=== PATIENT | female | born 1965 | race Caucasian/White ===

== ENCOUNTER → 2017-06-01 | Outpatient (CLI) | payer BC ==
[2017-06-01 13:35] LABS: HCT 43.6 % (34.0-46.0); HGB 13.8 gm/dL (11.4-16.0); MCH 28.2 pg (25.0-35.0); MCHC 31.7 g/dL (31.0-37.0); MCV 89.1 fL (80.0-100.0); Platelet Count 270 k/uL (150-450); RDW 12.5 % (11.5-15.5); WBC 7.1 k/uL (3.8-10.6)
== END | disposition home or self-care (01) ==
LOC: LABPAT 13:02
PROVIDERS: ATTEND Urology
DX: N39.46 Mixed incontinence (principal); R53.83 Other fatigue
CPT/HCPCS: 36415; 85027; 87086; 93005

== ENCOUNTER 2017-06-08 05:57 | Day surgery (SDC) | payer BC ==
[2017-06-05 15:59] VITALS: BMI 29.2
[~2017-06-08 05:57] MED LIST: LACTATED RINGERS 1,000 ML IV SCH; LEVOFLOXACIN 500MG-D5W PMX 500 MG in DEXTROSE/WATER 1 100ML.BAG IVPB ONE; MORPHINE SULFATE 2 MG/ML SYRINGE IV PRN
[2017-06-08] MEDS ORDERED: LIDOCAINE 1% 20 ML VIAL (10MG/ML) FOR IV START INTRADERMA ONE (06:37)
[2017-06-08] MEDS ORDERED: DEXAMETHASONE SOD PHOSPHATE 10 MG/ML 1 ML VIAL IV ONE (07:02)
[2017-06-08] MEDS ORDERED: SCOPOLAMINE 1.5MG/72HR PATCH TRANSDERM ONE (07:03)
[2017-06-08] MEDS ORDERED: ONDANSETRON 4 MG/2 ML VIAL IVP ONE (07:03)
[2017-06-08] MEDS ORDERED: BUPIVACAINE (PF) 0.5% 30 ML VIAL SQ ONE ×2 (07:32)
[2017-06-08] MEDS ORDERED: SUCCINYLCHOLINE CHLORIDE 100 MG/5 ML SYR IV ONE (07:34)
[2017-06-08] MEDS ORDERED: LIDOCAINE 1% INJ 10MG/ML (20 ML MDV) ONE (07:34)
[2017-06-08] MEDS ORDERED: PROPOFOL 10 MG/ML 20 ML VIAL IV ONE (07:34)
[2017-06-08] MEDS ORDERED: ROCURONIUM BROMIDE 10 MG/ML 10 ML VIAL IV ONE (07:34)
[2017-06-08] MEDS ORDERED: GLYCOPYRROLATE 0.2 MG/ML 2 ML VIAL ONE (07:34)
[2017-06-08] MEDS ORDERED: MIDAZOLAM 2 MG/2 ML VIAL ONE (07:34)
[2017-06-08] MEDS ORDERED: NEOSTIGMINE 1 MG/ML 10 ML VIAL ONE (07:34)
[2017-06-08] MEDS ORDERED: ePHEDrine SULFATE/0.9% NACL/PF 50 MG/5 ML SYRINGE IV ONE (07:34)
[2017-06-08] MEDS ORDERED: fentaNYL (PF) 50 MCG/ML 2 ML AMP ONE (07:34)
[2017-06-08] MEDS ORDERED: BACITRACIN 500 UNIT/GM OINT 28.4 GM TUBE TOPICAL ONE (07:51)
[2017-06-08] MEDS ORDERED: LIDOCAINE 1%-EPI 1:100,000 30 ML VIAL SQ ONE (07:53)
[2017-06-08] MEDS ORDERED: LACTATED RINGERS 1,000 ML IV ONE (08:24)
[2017-06-08] MEDS ORDERED: ONDANSETRON 4 MG/2 ML VIAL IVP PRN (08:33)
[2017-06-08] MEDS ORDERED: HYDROcodone/APAP 5-325MG 1 EACH TAB PO PRN ×2 (08:35)
--- NOTE | 2017-06-08 08:44 | P.OP ---
Date of Procedure: 06/08/17 Preoperative Diagnosis: Mixed Urinary Incontinence Postoperative Diagnosis: Same Procedure(s) Performed: Obtryx Subfascial Sling Anesthesia: TORSTEN Surgeon: Mukund Sanchez Estimated Blood Loss (ml): 30 IV fluids (ml): 650 Pathology: none sent Condition: stable Disposition: PACU Indications for Procedure: The patient is a 51 year old female wwith a long history of mixed urinary incontinence. This has not been treated to date, and requires the use of several pads daily. The stress component is predominant. On examination, the bladder is well supported, and there is minimal urethral hypermobility. Bladder emptying is complete, and urinalysis is negative. Urodynamic testing is consistent with Type II SANAM, and a Khadar test is positive. Alternative treatment options were reviewed, and she has elected to undergo a TOT sling. Operative Findings: No complications. Description of Procedure: The patient was taken to the operating room and placed in the dorsal lithotomy position, with her legs supported in Ángel stirrups. The perineum, lower abdomen, and vagina were prepped and draped sterilely. A 16-Israeli Saldaña catheter was placed. Silk sutures were placed to retract the labia laterally on each side. 1% lidocaine with epinephrine was injected submucosally within the anterior vaginal wall, over the urethra. The scalpel was then used to make an anterior midline vaginal incision over the urethra. Metzenbaum scissors were used to dissect laterally within the submucosal plane, to the inferior pubic ramus. The scalpel was used to make bilateral groin incisions at the level of the clitoris. Subcutaneous tissues were spread with a hemostat. Each of the helical needles were passed through the respective groin incision, and turned such that the needle tip wrapped around the pubis. The needle tips were guided digitally into the vaginal incision. The Obtryx graft, which had been previously soaked in antibiotic solution, was secured to the needle tips in the standard fashion. The needles were then withdrawn, and the position of the graft was adjusted such that it overlie the mid urethra, as desired. With a hemostat placed between the graft and the urethra to prevent tension of the graft over the urethra, the plastic sheath was removed from the ends of the graft. The ends of the graft were cut beneath the skin incisions, and these incisions were closed using 4-0 Vicryl suture in a subcuticular fashion. Hemostasis within the vaginal incision was adequate, and the vaginal incision was closed using 2-0 Vicryl suture in a running fashion. ystoscopy was performed. The 30 lens was used to introduce the 17-Israeli Storz cystoscopic sheath through the urethra and into the bladder under direct vision. The urethra and bladder were unremarkable. There was no evidence of perforation. Both ureteral orifices were of normal anatomic location and configuration, and clear urine effluxed from both. No tumors or foreign bodies were seen. The cystoscope was removed, and the Saldaña catheter was replaced into the bladder. All sponge and needle counts were correct. The patient tolerated the procedure well was taken to the recovery room in stable condition.
[2017-06-08] MEDS ORDERED: DEXTROSE 5%-0.45% NACL 1,000 ML IV SCH (08:45)
[2017-06-08] MEDS ORDERED: FLUTICASONE 50MCG/SPRAY NASAL 16GM EA NOSTRIL PRN (08:56)
[2017-06-08] MEDS ORDERED: HYDROCHLOROTHIAZIDE 25 MG TAB PO SCH (09:00)
[2017-06-08] MEDS: LEVOTHYROXINE 25 MCG TAB PO SCH (10:07)
[2017-06-08] MEDS: KETOROLAC 30 MG/ML 1 ML VIAL IVP PRN ×2 (10:23→16:22)
[2017-06-08] MEDS: PANTOPRAZOLE 40 MG TABLET PO SCH (10:23)
[2017-06-09] MEDS: LEVOTHYROXINE 25 MCG TAB PO SCH (06:15)
[2017-06-09] MEDS ORDERED: LEVOFLOXACIN 500MG-D5W PMX 500 MG in DEXTROSE/WATER 1 100ML.BAG IVPB SCH (07:00)
[2017-06-09] MEDS: PANTOPRAZOLE 40 MG TABLET PO SCH (07:50)
[2017-06-09 07:58] VITALS: RESP 16
[2017-06-09] MEDS: KETOROLAC 30 MG/ML 1 ML VIAL IVP PRN (09:22)
[2017-06-09 11:46] VITALS: BP 92/59; PULSE 60; TEMP 98.3
--- NOTE | 2017-06-09 12:51 | P.DS ---
Providers Expected date of discharge: 06/09/17 Attending physician: Mukund Sanchez Primary care physician: Mukund Sanchez [facility] Course: On the day of admission, the patient underwent an uncomplicated Obtryx subfascial sling. The postoperative course was unremarkable. The Saldaña catheter was removed on the first postoperative morning. She subsequently voided twice, the postvoid residuals of 110 and 160 mL. She stated that she had to concentrate but voided without difficulty. She reported minimal discomfort, controlled with Toradol. The groin incisions were clean and dry. She reported mild vaginal spotting which was improving over time. Procedures: Obtryx sling on 06/08/2017. Patient Condition at Discharge: Good Plan - Discharge Summary New Discharge Prescriptions: New Ketorolac [Toradol] 10 mg PO Q6HR #15 tab Levofloxacin [Levaquin] 500 mg PO DAILY #3 tab No Action Hydrochlorothiazide [Hydrodiuril] 25 mg PO DAILY Levothyroxine Sodium [Synthroid] 25 mcg PO DAILY Omeprazole [PriLOSEC] 40 mg PO QAM Fluticasone Nasal [place] [Flonase Nasal [place]] 2 spray EA NOSTRIL DAILY PRN PRN Reason: Nasal Congestion Discharge Medication List Hydrochlorothiazide [Hydrodiuril] 25 mg PO DAILY 08/07/14 [History] Levothyroxine Sodium [Synthroid] 25 mcg PO DAILY 08/07/14 [History] Fluticasone Nasal [place] [Flonase Nasal [place]] 2 spray EA NOSTRIL DAILY PRN 01/24 [History] Omeprazole [PriLOSEC] 40 mg PO QAM 01/25/16 [History] Ketorolac [Toradol] 10 mg PO Q6HR #15 tab 06/09/17 [Rx] Levofloxacin [Levaquin] 500 mg PO DAILY #3 tab 06/09/17 [Rx] Follow up Appointment(s)/Referral(s): Mukund Sanchez MD [Primary Care Provider] - 1 Week Patient Instructions/Handouts: *Surgery [facility] - Scopalamine Patch Instructions Activity/Diet/Wound Care/Special Instructions: Okay to shower. No lifting, driving, or strenuous activity. Discharge Disposition: HOME SELF-CARE
== END 2017-06-09 13:19 | disposition home or self-care (01) ==
LOC: OR 05:57 → 6PED 08:41 → OR 06-09 13:19
PROVIDERS: ATTEND Urology
DX: N39.46 Mixed incontinence (principal); E03.9 Hypothyroidism, unspecified; K21.9 Gastro-esophageal reflux disease without esophagitis; K44.9 Diaphragmatic hernia without obstruction or gangrene; M19.049 Primary osteoarthritis, unspecified hand; R42 Dizziness and giddiness; Z79.890 Hormone replacement therapy; Z79.51 Long term (current) use of inhaled steroids; Z79.899 Other long term (current) drug therapy; Z88.1 Allergy status to other antibiotic agents; Z88.2 Allergy status to sulfonamides; Z91.011 Allergy to milk products; Z91.018 Allergy to other foods; Z87.891 Personal history of nicotine dependence; Z86.010 Personal history of colon polyps
CPT/HCPCS: 57288; C1771; J2250; J1100; J2710; J2405; J1956 ×2; J2001; J3010; J1885 ×2; J0330; J2704

== ENCOUNTER 2017-06-09 14:50 | Emergency (ER) | payer OTHER, BC ==
[2017-06-09] MEDS ORDERED: RX INFO: IV CONTRAST WAS GIVEN 1 EACH MISC MISCELLANE PRN (15:05)
[2017-06-09] MEDS ORDERED: MORPHINE SULFATE 4 MG/ML SYRINGE IVP ONE (15:10)
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
[2017-06-09] MEDS ORDERED: ONDANSETRON 4 MG/2 ML VIAL IVP STA (15:11)
[2017-06-09] MEDS ORDERED: SODIUM CHLORIDE 0.9% 1,000 ML IV SCH (15:15)
[2017-06-09 15:18] VITALS: TEMP 98.6
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
[2017-06-09 15:44] LABS: Basophils % (A) 0 %; Eosinophils # (A) 0.1 k/uL (0-0.7); Eosinophils % (A) 1 %; HCT 36.1 % (34.0-46.0); HGB 12.1 gm/dL (11.4-16.0); Lymphocytes % (A) 20 %; MCH 28.8 pg (25.0-35.0); MCHC 33.5 g/dL (31.0-37.0); MCV 85.9 fL (80.0-100.0); Mean Platelet Volume 7.8; Monocytes # (A) 0.6 k/uL (0-1.0); Monocytes % (A) 6 %; Neutrophils # (A) 7.1 k/uL (1.3-7.7); Neutrophils % (A) 71 %; Platelet Count 221 k/uL (150-450)
[2017-06-09 15:49] LABS: INR 1.1 (<1.2); Partial Thromboplastin Time 23.5 sec (22.0-30.0)
[2017-06-09 15:54] LABS: ALT 35 U/L (9-52); AST 33 U/L (14-36); Albumin 3.7 g/dL (3.5-5.0); Alcohol <10 mg/dL; Alkaline Phosphatase 51 U/L (38-126); Anion Gap 11 mmol/L; Blood Urea Nitrogen 14 mg/dL (7-17); Calcium 8.9 mg/dL (8.4-10.2); Carbon Dioxide 26 mmol/L (22-30); Chloride 104 mmol/L (98-107); Glucose 90 mg/dL (74-99); Potassium 3.4 mmol/L (3.5-5.1); Sodium 141 mmol/L (137-145); Total Bilirubin 0.5 mg/dL (0.2-1.3); Total Protein 6.4 g/dL (6.3-8.2)
[2017-06-09 16:05] LABS: Creatine Kinase 538 U/L (30-135)
[2017-06-09 16:17] LABS: Troponin I <0.012 ng/mL (0.000-0.034)
[2017-06-09 16:19] LABS: Creatine Kinase MB 5.6 ng/mL (0.0-2.4)
[2017-06-09 16:25] LABS: Amphetamine Screen,Urine Not Detected (NotDetected); Barbiturate Screen,Urine Not Detected (NotDetected); Benzodiazepines Screen,Urine Not Detected (NotDetected); Cocaine Screen,Urine Not Detected (NotDetected); Methadone Screen, Urine Not Detected (NotDetected); Opiate Screen,Urine Not Detected (NotDetected); Oxycodone Screen, Urine Not Detected (NotDetected); Phencyclidine Screen,Urine Not Detected (NotDetected); Tricyclic Antidepressant,Urine Not Detected (NotDetected); Urn Cannabinoid Scrn Not Detected (NotDetected)
[2017-06-09 16:27] LABS: Appearance,Urine Clear (Clear); Bacteria,Urine Occasional /hpf; Bilirubin,Urine Negative (Negative); Blood,Urine Moderate (Negative); Color,Urine Light Yellow; Glucose,Urine (UA) Negative (Negative); Ketones,Urine Negative (Negative); Leukocyte Esterase,Urine Small (Negative); Mucus,Urine Rare /hpf; Protein,Urine Negative (Negative); RBC,Urine 37 /hpf (0-5); Squamous Epithelial Cell,Urine 2 /hpf (0-4); Urobilinogen,Urine <2.0 mg/dL (<2.0); WBC,Urine 4 /hpf (0-5)
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
[2017-06-09 17:47] VITALS: RESP 16
[2017-06-09] MEDS ORDERED: ACETAMINOPHEN TAB 500 MG TAB PO STA (18:45)
[2017-06-09 19:21] VITALS: BP 118/62; PULSE 74
== END 2017-06-09 19:27 | disposition home or self-care (01) ==
LOC: EC 14:50
DX: R07.9 Chest pain, unspecified (principal); R10.31 Right lower quadrant pain; K21.9 Gastro-esophageal reflux disease without esophagitis; E07.9 Disorder of thyroid, unspecified; Z87.891 Personal history of nicotine dependence; Z79.899 Other long term (current) drug therapy; Z88.1 Allergy status to other antibiotic agents; Z88.2 Allergy status to sulfonamides; Z91.011 Allergy to milk products; Z91.018 Allergy to other foods; Z90.49 Acquired absence of other specified parts of digestive tract; Z98.890 Other specified postprocedural states; V49.59XA Passenger injured in collision with other motor vehicles in traffic accident, initial encounter; Y92.410 Unspecified street and highway as the place of occurrence of the external cause
CPT/HCPCS: 99285; 96374; 96375; 36415; 93005; 86900; 86901; 80053; 82550; 82553; 84484; 85025; 85610; 85730; 86850; 81001; 80306; 80320; 72170; 71045; 71260; 74177; J2270; J2405; Q9967

== ENCOUNTER → 2019-03-11 | Outpatient (CLI) | payer BC ==
[2019-03-11 16:47] LABS: Basophils # (A) 0.1 k/uL (0-0.2); Basophils % (A) 1 %; Eosinophils # (A) 0.1 k/uL (0-0.7); Eosinophils % (A) 2 %; HCT 43.1 % (34.0-46.0); Lymphocytes # (A) 2.4 k/uL (1.0-4.8); Lymphocytes % (A) 28 %; MCH 30.2 pg (25.0-35.0); MCHC 34.8 g/dL (31.0-37.0); MCV 86.9 fL (80.0-100.0); Mean Platelet Volume 6.4; Monocytes # (A) 0.6 k/uL (0-1.0); Monocytes % (A) 7 %; Neutrophils # (A) 5.2 k/uL (1.3-7.7); Neutrophils % (A) 61 %; Platelet Count 261 k/uL (150-450); RBC 4.96 m/uL (3.80-5.40); RDW 12.6 % (11.5-15.5); WBC 8.6 k/uL (3.8-10.6)
== END | disposition home or self-care (01) ==
LOC: LABPAT 16:01
PROVIDERS: ATTEND Obstetrics & Gynecology
DX: Z01.818 Encounter for other preprocedural examination (principal); Z01.812 Encounter for preprocedural laboratory examination
CPT/HCPCS: 36415; 85025; 93005

== ENCOUNTER 2019-03-26 06:16 | Day surgery (SDC) | payer BC ==
[2019-03-22 18:21] VITALS: BMI 29.6
--- NOTE | 2019-03-25 13:31 | P.HPOB ---
History of Present Illness H&P Date: 03/25/19 Chief Complaint: Postmenopausal bleeding, endometrial thickening This is a 53 y.o. female, gravida2, para 2, who presents for dilatation and curettage with hysteroscopy for postmenopausal bleeding and endometrial thickening. Her last period was in her late 40s and she had bright red bleeding and spotting about a month ago. Bleeding is when she wipes. She complains of some pelvic pressure. Pelvic ultrasound showed uterus 7.2 x 2.7 x 3.9 cm with endometrium at 0.7 cm with some cystic areas noted. Ovaries were normal. OB Hx: . History of 2 vaginal deliveries. Shroud Line Tier Hx: No hx of STDs Social Hx: . Works production. Review of Systems Constitutional: Denies chills, Denies fever Eyes: denies blurred vision, denies pain Ears, nose, mouth and throat: Denies headache, Denies sore throat Cardiovascular: Denies chest pain, Denies shortness of breath Respiratory: Denies cough Gastrointestinal: Reports heartburn Genitourinary: Reports abnormal vaginal bleeding, Reports pelvic pain Menstruation: Reports postmenopausal Musculoskeletal: Reports low back pain, Reports myalgias Integumentary: Denies pruritus, Denies rash Neurological: Denies numbness, Denies weakness Psychiatric: Denies anxiety, Denies depression Past Medical History Past Medical History: GERD/Reflux, Osteoarthritis (OA), Thyroid Disorder Additional Past Medical History / Comment(s): Past hx hiatal hernia, dx "fatty liver", OA fingers, hx edema feet/ankles - wears compression socks, hx PM bleeding History of Any Multi-Drug Resistant Organisms: None Reported Past Surgical History: Bladder Surgery, Cholecystectomy Additional Past Surgical History / Comment(s): flavia fundoplasty, Bladder sling Past Anesthesia/Blood Transfusion Reactions: Family History of Problems w/ Anesthesia, Motion Sickness Additional Past Anesthesia/Blood Transfusion Reaction / Comment(s): sister-PONV Past Psychological History: No Psychological Hx Reported Smoking Status: Former smoker Past Alcohol Use History: None Reported Past Drug Use History: None Reported - Past Family History Father Family Medical History: Cancer Additional Family Medical History / Comment(s): Esophageal CA Medications and Allergies Home Medications Medication Instructions Recorded Confirmed Type Hydrochlorothiazide [Hydrodiuril] 25 mg PO DAILY 08/07/14 03/26/19 History Levothyroxine Sodium [Synthroid] 25 mcg PO DAILY 08/07/14 03/26/19 History Omeprazole [PriLOSEC] 40 mg PO QAM 01/25/16 03/26/19 History Ascorbic Acid [Vitamin C] 1,000 mg PO DAILY 03/22/19 03/26/19 History Loratadine [Claritin] 10 mg PO DAILY 03/22/19 03/26/19 History [place]-3 Fatty Acids [[place]-3] 1,000 mg PO DAILY 03/22/19 03/26/19 History Allergies Allergy/AdvReac Type Severity Reaction Status Date / Time milk Allergy Swelling Verified 03/26/19 06:47 Sulfa (Sulfonamide Allergy Rash/Hives Verified 03/26/19 06:47 Antibiotics) wheat Allergy Unknown Verified 03/26/19 06:47 cephalexin monohydrate AdvReac yeast Verified 03/26/19 06:47 [From Keflex] infection Exam Osteopathic Statement: *. No significant issues noted on an osteopathic structural exam other than those noted in the History and Physical/Consult. HEENT: within normal limits Heart: regular rate and rhythm Lungs: clear to auscultation bilaterally Abdomen: soft, non-tender Pelvic: uterus anteverted, non-tender with no adnexal masses or tenderness. Tender on R. pubic symphysis. Extremities: neg. Homans Assessment and Plan (1) Postmenopausal bleeding Current Visit: No Status: Acute Code(s): N95.0 - POSTMENOPAUSAL BLEEDING SNOMED Code(s): 10262071 (2) Endometrial thickening on ultrasound Current Visit: No Status: Acute Code(s): R93.89 - ABNORMAL FINDINGS ON DX IMAGING OF OTH BODY STRUCTURES SNOMED Code(s): 169752641 Plan: Proceed with dilatation and curettage with hysteroscopy. I have discussed the risks, benefits, and alternative therapies for the above- mentioned procedure and for both sedation/anesthesia as well as necessary blood products administration, if indicated, as they pertain to this patient. The patient has indicated her understanding and acceptance of the risks and procedures discussed.
[~2019-03-26 06:16] MED LIST changes: +DEXAMETHASONE SOD PHOSPHATE 10 MG/ML 1 ML VIAL IV ONE; +HYDROmorphone 0.5 MG/0.5 ML SYRINGE IVP PRN; -LEVOFLOXACIN 500MG-D5W PMX 500 MG in DEXTROSE/WATER 1 100ML.BAG IVPB ONE; +LIDOCAINE 1% 20 ML VIAL (10MG/ML) FOR IV START INTRADERMA PRN; +MIDAZOLAM 2 MG/2 ML VIAL IV PRN; -MORPHINE SULFATE 2 MG/ML SYRINGE IV PRN; +ONDANSETRON 4 MG/2 ML VIAL IVP ONE; +Pre Op ABX Message 1 EACH MISC MISCELLANE ONE; +SCOPOLAMINE 1.5MG/72HR PATCH TRANSDERM ONE
[2019-03-26] MEDS ORDERED: KETOROLAC 30 MG/ML 1 ML VIAL ONE (07:29)
[2019-03-26] MEDS ORDERED: SUCCINYLCHOLINE CHLORIDE 100 MG/5 ML SYR IV ONE (07:29)
[2019-03-26] MEDS ORDERED: PROPOFOL 10 MG/ML 20 ML VIAL IV ONE (07:29)
[2019-03-26] MEDS ORDERED: LIDOCAINE 1% INJ 10MG/ML (20 ML MDV) ONE (07:29)
[2019-03-26] MEDS ORDERED: diphenhydrAMINE 50 MG/ML 1 ML VIAL ONE (07:29)
[2019-03-26] MEDS ORDERED: MIDAZOLAM 2 MG/2 ML VIAL ONE (07:29)
[2019-03-26] MEDS ORDERED: fentaNYL (PF) 50 MCG/ML 2 ML AMP ONE (07:29)
--- NOTE | 2019-03-26 08:04 | P.OP ---
Date of Procedure: 03/26/19 Preoperative Diagnosis: postmenopausal bleeding Endometrial thickening Postoperative Diagnosis: Same Procedure(s) Performed: Dilation and curettage with hysteroscopy Anesthesia: TORSTEN Surgeon: Sivan Davis Estimated Blood Loss (ml): 5 Pathology: other (Endometrial curettings) Condition: stable Disposition: same day Indications for Procedure: This is a 53 y.o. female, gravida2, para 2, who presents for dilatation and curettage with hysteroscopy for postmenopausal bleeding and endometrial thickening. Her last period was in her late 40s and she had bright red bleeding and spotting about a month ago. Bleeding is when she wipes. She complains of some pelvic pressure. Pelvic ultrasound showed uterus 7.2 x 2.7 x 3.9 cm with endometrium at 0.7 cm with some cystic areas noted. Ovaries were normal. Operative Findings: Uterus is anteverted, sounded to 7 cm. Upon hysteroscopy, both tubal ostia are visualized. There is several polyps visualized. Some the areas could be submucosal fibroids versus polyps. A minimal to moderate amount of the nature curettings are obtained. Background endometrium does appear atrophic Description of Procedure: The patient is taken to the operating room where she is placed in the dorsal lithotomy position. She is prepped and draped in the normal sterile fashion. Her bladder is drained with a catheter. Examination is performed under anesthesia. Uterus is found to be slightly bulky, anteverted, with no adnexal masses palpated. Next a weighted speculum was placed in the patient's vagina. A right angle retractor was used to visualize the cervix. The anterior lip of the cervix is grasped with a single-tooth tenaculum. Next the uterus is sounded to 7 cm. Cervix is gently dilated with Novak dilators until a hysteroscope could be passed. Hysteroscopy is performed using normal saline. The above- noted findings were made and pictures are taken. Hysteroscope was removed and then the cervix is gently dilated further with Novak dilators. Next a polyp forcep was introduced and a large polypoid area was removed. Next a medium-size sharp curet was introduced and sharp curettage was performed until a gritty texture was noted. A minimal to moderate amount of tissue was obtained. Specimen is removed from the field and sent to pathology. Single-tooth tenaculum is removed and no active bleeding is noted. All instrument are removed from the vagina. All sponge counts are correct. The patient is then taken to recovery room in stable condition.
[2019-03-26 08:20] VITALS: TEMP 98.1
[2019-03-26 09:15] VITALS: RESP 16
[2019-03-26 09:32] VITALS: PULSE 64
[2019-03-26 09:41] VITALS: BP 110/61
== END 2019-03-26 09:57 | disposition home or self-care (01) ==
LOC: OR 06:16
PROVIDERS: ATTEND Obstetrics & Gynecology
DX: N84.0 Polyp of corpus uteri (principal); N95.0 Postmenopausal bleeding; K21.9 Gastro-esophageal reflux disease without esophagitis; E07.9 Disorder of thyroid, unspecified; Z87.19 Personal history of other diseases of the digestive system; K76.0 Fatty (change of) liver, not elsewhere classified; M19.049 Primary osteoarthritis, unspecified hand; Z90.49 Acquired absence of other specified parts of digestive tract; Z98.890 Other specified postprocedural states; Z87.891 Personal history of nicotine dependence; Z80.0 Family history of malignant neoplasm of digestive organs; Z79.890 Hormone replacement therapy; Z79.899 Other long term (current) drug therapy; Z91.011 Allergy to milk products; Z88.2 Allergy status to sulfonamides; Z91.018 Allergy to other foods; Z88.1 Allergy status to other antibiotic agents
CPT/HCPCS: 88305; 58558; J2250; J1200; J1100; J2405; J2001; J3010; J1885; J0330; J2704

== ENCOUNTER → 2020-02-28 | Outpatient (CLI) | payer BC ==
--- NOTE | 2020-02-28 16:04 | FL ---
EXAMINATION TYPE: FL barium swallow DATE OF EXAM: 02/28/2020 COMPARISON: 08/09/2014 upper GI HISTORY: Hiatal hernia TECHNIQUE: A double air contrast technique is utilized to evaluate the esophagus. FINDINGS: Fluoroscopy time: 45 seconds Images: 11 Esophagus dilates to normal caliber has normal contour to the gastroesophageal junction. Gastroesopha geal junction opens to normal caliber. No intraluminal arterial defects are evident. There is complet e stripping of esophageal bolus the horizontal drinking position. No suspicious abnormality to accoun t for the patient's symptoms evident IMPRESSION: 1. Unremarkable esophagram
== END | disposition home or self-care (01) ==
LOC: RADUSWWP 07:44
PROVIDERS: ATTEND Surgery Plastic and Reconstructive Surgery
DX: K44.9 Diaphragmatic hernia without obstruction or gangrene (principal); Z88.2 Allergy status to sulfonamides; Z88.1 Allergy status to other antibiotic agents
CPT/HCPCS: 74220

== ENCOUNTER 2020-03-19 06:46 | Day surgery (SDC) | payer BC ==
[2020-03-16 17:32] VITALS: BMI 29.4
--- NOTE | 2020-03-19 06:07 | P.GSHP ---
History of Present Illness H&P Date: 03/19/20 CHIEF COMPLAINT: GERD HISTORY OF PRESENT ILLNESS: The patient is a 54-year-old female who presents reports gastroesophageal reflux disease. Upper endoscopy was offered for further evaluation and management. PAST MEDICAL HISTORY: Please see list. PAST SURGICAL HISTORY: Please see list. MEDICATIONS: Please see list. ALLERGIES: Please see list. SOCIAL HISTORY: No illicit drug use FAMILY HISTORY: No reports of Crohn disease or ulcerative colitis. REVIEW OF ORGAN SYSTEMS: CONSTITUTIONAL: No reports of fevers or chills. GI: Denies any blood in stools or constipation. PHYSICAL EXAM: VITAL SIGNS: Stable GENERAL: Well-developed and pleasant in no acute distress. HEENT: No scleral icterus. Extraocular movements grossly intact. Moist buccal mucosa. NECK: Supple without lymphadenopathy. CHEST: Unlabored respirations. Equal bilateral excursions. CARDIOVASCULAR: Regular rate and rhythm. Distal 2+ pulses. ABDOMEN: Soft, nondistended. MUSCULOSKELETAL: No clubbing, cyanosis, or edema. ASSESSMENT: 1. Gastroesophageal reflux disease PLAN: 1. Recommend proceeding with an upper endoscopy Past Medical History Past Medical History: GERD/Reflux, Osteoarthritis (OA), Thyroid Disorder Additional Past Medical History / Comment(s): Past hx hiatal hernia, dx "fatty liver", OA fingers, hx edema feet/ankles - wears compression socks, hx PM bleeding. Hx pain where hiatal hernia was located. History of Any Multi-Drug Resistant Organisms: None Reported Past Surgical History: Bladder Surgery, Cholecystectomy Additional Past Surgical History / Comment(s): flavia fundoplasty, Bladder sling, colonoscopy Past Anesthesia/Blood Transfusion Reactions: Family History of Problems w/ Anesthesia, Motion Sickness Additional Past Anesthesia/Blood Transfusion Reaction / Comment(s): sister-PONV Smoking Status: Former smoker - Past Family History Father Family Medical History: Cancer Additional Family Medical History / Comment(s): Esophageal CA Medications and Allergies Home Medications Medication Instructions Recorded Confirmed Type Levothyroxine Sodium [Synthroid] 25 mcg PO DAILY 08/07/14 03/16/20 History hydroCHLOROthiazide [Hydrodiuril] 25 mg PO DAILY 08/07/14 03/16/20 History Omeprazole [PriLOSEC] 40 mg PO QAM 01/25/16 03/16/20 History Ascorbic Acid [Vitamin C] 1,000 mg PO DAILY 03/22/19 03/16/20 History Loratadine [Claritin] 10 mg PO DAILY 03/22/19 03/16/20 History Cholecalciferol [Vitamin D3 (25 1,000 unit PO DAILY 03/16/20 03/16/20 History Mcg = 1000 Iu)] Zinc 35 mg PO DAILY 03/16/20 03/16/20 History Allergies Allergy/AdvReac Type Severity Reaction Status Date / Time milk Allergy Swelling Verified 03/16/20 17:15 Sulfa (Sulfonamide Allergy Rash/Hives Verified 03/16/20 17:15 Antibiotics) wheat Allergy Unknown Verified 03/16/20 17:15 cephalexin monohydrate AdvReac yeast Verified 03/16/20 17:15 [From Keflex] infection
[~2020-03-19 06:46] MED LIST changes: -DEXAMETHASONE SOD PHOSPHATE 10 MG/ML 1 ML VIAL IV ONE; -HYDROmorphone 0.5 MG/0.5 ML SYRINGE IVP PRN; +LIDOCAINE 1% (10MG/ML) FOR IV START INTRADERMA PRN; -LIDOCAINE 1% 20 ML VIAL (10MG/ML) FOR IV START INTRADERMA PRN; -MIDAZOLAM 2 MG/2 ML VIAL IV PRN; -ONDANSETRON 4 MG/2 ML VIAL IVP ONE; -Pre Op ABX Message 1 EACH MISC MISCELLANE ONE; -SCOPOLAMINE 1.5MG/72HR PATCH TRANSDERM ONE
[2020-03-19 07:08] VITALS: RESP 16; TEMP 98.4
[2020-03-19] MEDS ORDERED: PROPOFOL 10 MG/ML 20 ML VIAL IV ONE (07:46)
[2020-03-19] MEDS ORDERED: LIDOCAINE 1% INJ 10MG/ML (20 ML MDV) ONE (07:46)
--- NOTE | 2020-03-19 08:11 | P.PCN ---
Date of Procedure: 03/19/20 Description of Procedure: PREOPERATIVE DIAGNOSIS: Gastroesophageal reflux disease POSTOPERATIVE DIAGNOSIS: Gastritis. Gastroesophageal reflux disease Diaphragmatic hiatal hernia OPERATION: Esophagogastroduodenoscopy with biopsies along antrum. SURGEON: Kari Espinoza MD ANESTHESIA: MAC. INDICATIONS: The patient is a 54-year-old female who presents with a history of reflux disease. Benefits and risks of the procedure were described. Informed consent was obtained. DESCRIPTION: The patient was brought into the endoscopy suite and laid in the left lateral decubitus position. An Olympus gastroscope was passed along the posterior oropharynx down to the distal esophagus where the squamocolumnar junction was encountered at 35 cm from the incisors. The stomach was entered and no bile reflux was found. Additional findings are listed below. Biopsies with cold forceps were obtained of the antrum. The first through third portion of the duodenum was examined and unremarkable. Retroflexion of the scope confirmed Hill grade 3 lower esophageal valve. The squamocolumnar junction demonstrated LA grade A erosive esophagitis. The stomach was desufflated. The patient tolerated the procedure well. FINDINGS: Squamocolumnar junction 35 cm from the incisors. Diaphragmatic hiatus at 35 cm. Hill grade 3 lower esophageal valve, recurrent from Hill grade 1 LA grade A erosive esophagitis. No active duodenitis. Chronic gastritis RECOMMENDATIONS: 1. Upper endoscopy as needed. 2. Recommend esophagram for severity of recurrent gastroesophageal reflux disease 3. Recommend esophageal manometry for esophageal dysmotility assessment 4. May benefit from repair of recurrent hiatal hernia 5. In the interim, antacid therapy advised for control of symptoms Plan - Discharge Summary Discharge Rx Participant: No New Discharge Prescriptions: Continue hydroCHLOROthiazide [Hydrodiuril] 25 mg PO DAILY Levothyroxine Sodium [Synthroid] 25 mcg PO DAILY Omeprazole [PriLOSEC] 40 mg PO QAM Loratadine [Claritin] 10 mg PO DAILY Ascorbic Acid [Vitamin C] 1,000 mg PO DAILY Zinc 35 mg PO DAILY Cholecalciferol [Vitamin D3 (25 Mcg = 1000 Iu)] 1,000 unit PO DAILY Discharge Medication List Levothyroxine Sodium [Synthroid] 25 mcg PO DAILY 08/07/14 [History] hydroCHLOROthiazide [Hydrodiuril] 25 mg PO DAILY 08/07/14 [History] Omeprazole [PriLOSEC] 40 mg PO QAM 01/25/16 [History] Ascorbic Acid [Vitamin C] 1,000 mg PO DAILY 03/22/19 [History] Loratadine [Claritin] 10 mg PO DAILY 03/22/19 [History] Cholecalciferol [Vitamin D3 (25 Mcg = 1000 Iu)] 1,000 unit PO DAILY 03/16/20 [History] Zinc 35 mg PO DAILY 03/16/20 [History] Follow up Appointment(s)/Referral(s): Kari Espinoza MD [STAFF PHYSICIAN] - 03/31/20 Patient Instructions/Handouts: Gastroesophageal Reflux Disease (DC) Discharge Disposition: HOME SELF-CARE
[2020-03-19 08:28] VITALS: BP 102/64; PULSE 63
== END 2020-03-19 08:48 | disposition home or self-care (01) ==
LOC: ORWHC2ENDO 06:46
PROVIDERS: ATTEND Surgery Plastic and Reconstructive Surgery
DX: K29.50 Unspecified chronic gastritis without bleeding (principal); K22.10 Ulcer of esophagus without bleeding; K21.9 Gastro-esophageal reflux disease without esophagitis; E07.9 Disorder of thyroid, unspecified; I10 Essential (primary) hypertension; M19.049 Primary osteoarthritis, unspecified hand; R60.0 Localized edema; Z90.49 Acquired absence of other specified parts of digestive tract; Z87.891 Personal history of nicotine dependence; Z80.0 Family history of malignant neoplasm of digestive organs; Z98.890 Other specified postprocedural states; Z79.890 Hormone replacement therapy; Z79.899 Other long term (current) drug therapy; Z88.1 Allergy status to other antibiotic agents; Z91.011 Allergy to milk products; Z88.2 Allergy status to sulfonamides; Z91.018 Allergy to other foods
CPT/HCPCS: 88305; 43239; J2001; J2704

== ENCOUNTER → 2021-04-22 | Outpatient (CLI) | payer BC | END | disposition home or self-care (01) | LOC: LABPAT 16:03 | PROVIDERS: ATTEND Surgery Plastic and Reconstructive Surgery | DX: Z20.822 Contact with and (suspected) exposure to COVID-19 (principal) | CPT/HCPCS: 84153; U0003; C9803; U0005 ==

== ENCOUNTER 2021-05-26 09:17 | Day surgery (SDC) | payer BC ==
[2021-05-24 09:12] VITALS: BMI 27.9
[2021-05-26] MEDS ORDERED: LACTATED RINGERS 1,000 ML IV ONE (09:44)
[2021-05-26 09:46] VITALS: TEMP 97.8
[2021-05-26] MEDS ORDERED: LIDOCAINE 1% INJ 10MG/ML (20 ML MDV) ONE (10:42)
[2021-05-26] MEDS ORDERED: PROPOFOL 10 MG/ML 20 ML VIAL IV ONE (10:42)
--- NOTE | 2021-05-26 11:03 | P.GSHP ---
History of Present Illness H&P Date: 05/26/21 CHIEF COMPLAINT: Colon screen HISTORY OF PRESENT ILLNESS: The patient is a 55-year-old female who presents for colon screen. Lower endoscopy was offered for further evaluation and management. PAST MEDICAL HISTORY: Please see list. PAST SURGICAL HISTORY: Please see list. MEDICATIONS: Please see list. ALLERGIES: Please see list. SOCIAL HISTORY: No illicit drug use FAMILY HISTORY: No reports of Crohn disease or ulcerative colitis. REVIEW OF ORGAN SYSTEMS: CONSTITUTIONAL: No reports of fevers or chills. PHYSICAL EXAM: VITAL SIGNS: Stable GENERAL: Well-developed pleasant in no acute distress. HEENT: No scleral icterus. Extraocular movements grossly intact. Moist buccal mucosa. NECK: Supple without lymphadenopathy. CHEST: Unlabored respirations. Equal bilateral excursions. CARDIOVASCULAR: Regular rate and rhythm. Distal 2+ pulses. ABDOMEN: Soft, nontender, nondistended. MUSCULOSKELETAL: No clubbing, cyanosis, or edema. ASSESSMENT: 1. Colon screen. PLAN: 1. Recommend proceeding with a lower endoscopy Past Medical History Past Medical History: GERD/Reflux, Osteoarthritis (OA), Thyroid Disorder Additional Past Medical History / Comment(s): Past hx hiatal hernia, dx "fatty liver", hx edema feet/ankles - wears compression socks, hx PM bleeding-resolved History of Any Multi-Drug Resistant Organisms: None Reported Past Surgical History: Bladder Surgery, Cholecystectomy Additional Past Surgical History / Comment(s): flavia fundoplasty, Bladder sling,D&C Past Anesthesia/Blood Transfusion Reactions: Family History of Problems w/ Anesthesia, Motion Sickness Additional Past Anesthesia/Blood Transfusion Reaction / Comment(s): sister-PONV Smoking Status: Former smoker - Past Family History Father Family Medical History: Cancer Additional Family Medical History / Comment(s): Esophageal CA Medications and Allergies Home Medications Medication Instructions Recorded Confirmed Type Levothyroxine Sodium [Synthroid] 25 mcg PO QAM 08/07/14 05/24/21 History hydroCHLOROthiazide [Hydrodiuril] 25 mg PO QAM 08/07/14 05/24/21 History Omeprazole [PriLOSEC] 40 mg PO QAM 01/25/16 05/24/21 History Ascorbic Acid [Vitamin C] 1,000 mg PO DAILY 03/22/19 05/24/21 History Loratadine [Claritin] 10 mg PO DAILY 03/22/19 05/24/21 History Cholecalciferol [Vitamin D3 (25 25 mcg PO DAILY 03/16/20 05/24/21 History Mcg = 1000 Iu)] Zinc 35 mg PO DAILY 03/16/20 05/24/21 History Allergies Allergy/AdvReac Type Severity Reaction Status Date / Time milk Allergy Swelling Verified 05/24/21 08:44 Sulfa (Sulfonamide Allergy Rash/Hives Verified 05/24/21 08:44 Antibiotics) wheat Allergy Unknown Verified 05/24/21 08:44 cephalexin monohydrate AdvReac yeast Verified 05/24/21 08:44 [From Keflex] infection Surgical - Exam Vital Signs Temp Pulse Resp BP Pulse Ox 97.8 F 61 18 136/65 98 05/26/21 09:45 05/26/21 09:45 05/26/21 09:45 05/26/21 09:45 05/26/21 09:45
--- NOTE | 2021-05-26 11:07 | P.PCN ---
Date of Procedure: 05/26/21 Description of Procedure: PREOPERATIVE DIAGNOSIS: Personal history colon polyps Colonoscopy screening. POSTOPERATIVE DIAGNOSIS: Colonoscopy screening. Diverticulosis, scattered. OPERATION: Colonoscopy to the cecum, ileocecal valve and appendiceal orifice. SURGEON: Kari Espinoza MD. ANESTHESIA: MAC. INDICATIONS: The patient is a 55-year-old female who presents for colonoscopy screening. Last colonoscopy 5 years ago Benefits and risks were described and informed consent was obtained. DESCRIPTION OF PROCEDURE: The patient had undergone Sutab prep. The patient had been brought into the operating room and laid in the left lateral decubitus position. After adequate intravenous sedation, the rectum was examined with 2% lidocaine jelly. External hemorrhoids were encountered. The rectal tone was within normal limits. No lesions were palpated in the rectal vault. An Olympus colonoscope was advanced until the cecum, ileocecal valve and appendiceal orifice were clearly viewed. The prep was fair. No large scattered diverticulosis was encountered. No colonic polyps were found. No evidence of focal colitis was found. Retroflexion of the scope demonstrated grade 1 internal hemorrhoids without active bleeding or inflammation. The colon was desufflated. The patient had tolerated the proced ure well. Withdrawal time was over 6 minutes. FINDINGS: Aronchick preparation quality scale 3 (1-5) Internal hemorrhoids, grade 1 External prolapsed hemorrhoids. No arteriovenous malformations. No adenomatous polyps. No focal colitis. RECOMMENDATIONS: Lower endoscopy in 5 years, 2026 Plan - Discharge Summary Discharge Rx Participant: No New Discharge Prescriptions: Continue hydroCHLOROthiazide [Hydrodiuril] 25 mg PO QAM Levothyroxine Sodium [Synthroid] 25 mcg PO QAM Omeprazole [PriLOSEC] 40 mg PO QAM Loratadine [Claritin] 10 mg PO DAILY Ascorbic Acid [Vitamin C] 1,000 mg PO DAILY Zinc 35 mg PO DAILY Cholecalciferol [Vitamin D3 (25 Mcg = 1000 Iu)] 25 mcg PO DAILY Discharge Medication List Levothyroxine Sodium [Synthroid] 25 mcg PO QAM 08/07/14 [History] hydroCHLOROthiazide [Hydrodiuril] 25 mg PO QAM 08/07/14 [History] Omeprazole [PriLOSEC] 40 mg PO QAM 01/25/16 [History] Ascorbic Acid [Vitamin C] 1,000 mg PO DAILY 03/22/19 [History] Loratadine [Claritin] 10 mg PO DAILY 03/22/19 [History] Cholecalciferol [Vitamin D3 (25 Mcg = 1000 Iu)] 25 mcg PO DAILY 03/16/20 [History] Zinc 35 mg PO DAILY 03/16/20 [History] Follow up Appointment(s)/Referral(s): Kari Espinoza MD [STAFF PHYSICIAN] - As Needed Patient Instructions/Handouts: *[facility] - (Anesthesia) Endoscopy Discharge Instructions Activity/Diet/Wound Care/Special Instructions: Repeat colonoscopy in 5 years, 2026 Discharge Disposition: HOME SELF-CARE
[2021-05-26 11:19] VITALS: BP 94/58; PULSE 57; RESP 16
== END 2021-05-26 12:09 | disposition home or self-care (01) ==
LOC: ORWHC2ENDO 09:17
PROVIDERS: ATTEND Surgery Plastic and Reconstructive Surgery
DX: Z12.11 Encounter for screening for malignant neoplasm of colon (principal); K57.90 Diverticulosis of intestine, part unspecified, without perforation or abscess without bleeding; Z86.010 Personal history of colon polyps
CPT/HCPCS: 45378; J2001; J2704

== ENCOUNTER 2023-02-01 09:23 | Day surgery (SDC) | payer BC ==
[~2023-02-01 09:23] MED LIST changes: +CLINDAMYCIN 600 MG in DEXTROSE 5% IN WATER 50 ML IVPB PRN; +DEXAMETHASONE SOD PHOSPHATE 4 MG/ML 1 ML VIAL IV ONE; +FAMOTIDINE 20 MG/2 ML VIAL IV PRN; +HYDROmorphone 0.5 MG/0.5 ML SYRINGE IVP PRN; +MIDAZOLAM 2 MG/2 ML VIAL IV PRN; +ONDANSETRON 4 MG/2 ML VIAL IVP ONE; +ONDANSETRON 4 MG/2 ML VIAL IVP PRN
[2023-02-01] MEDS: OXYMETAZOLINE 0.05% NASL SPRAY 1 SPRAY BOTTLE EA NOSTRIL PRN ×5 (09:31→09:51)
[2023-02-01] MEDS ORDERED: SUCCINYLCHOLINE CHLORIDE 200 MG/10 ML VIAL IV ONE (09:51)
[2023-02-01] MEDS ORDERED: fentaNYL (PF) 50 MCG/ML 2 ML AMP ONE (09:51)
[2023-02-01] MEDS ORDERED: PROPOFOL 10 MG/ML 20 ML VIAL IV ONE (09:51)
[2023-02-01] MEDS ORDERED: MIDAZOLAM 2 MG/2 ML VIAL ONE (09:51)
[2023-02-01] MEDS ORDERED: LIDOCAINE 1% INJ 10MG/ML (20 ML MDV) ONE (09:51)
[2023-02-01] MEDS ORDERED: LIDOCAINE 1%-EPI 1:100,000 50 ML VIAL SUBMUCOSAL ONE (10:08)
--- NOTE | 2023-02-01 10:37 | P.OP ---
Date of Procedure: 02/01/23 Preoperative Diagnosis: Deviated nasal septum Inferior turbinate hypertrophy Postoperative Diagnosis: Same Procedure(s) Performed: Septoplasty Outfracture and submucous resection inferior turbinates Anesthesia: OBDULIOA Surgeon: Mendez Chaves Estimated Blood Loss (ml): 3 Pathology: other (Nasal septal bone and cartilage) Condition: stable Disposition: PACU Indications for Procedure: Is a 57-year-old white female who is difficulties with nasal airway obstruction bilaterally right greater than left Operative Findings: Nasal septum deviated to the right posterior approximately 80% obstruction and to the left anteriorly prior to 60% obstruction. The inferior turbinate hypertrophy bilateral Description of Procedure: DESCRIPTION OF PROCEDURE: The patient was brought to the operative suite, placed in the supine position. The patient underwent induction of general anesthesia with oral endotracheal intubation without difficulty. The patient was prepped and draped in the usual aseptic fashion. 1% lidocaine with 1:100,000 epinephrine was infused submucosally on both sides of the nasal septum. While this was taking vasoconstrictive effect, the inferior turbinates were infractured with a [place] elevator. Partial submucous resection of the inferior turbinates was performed with Coblation device ablating a portion of the submucosal soft tissue. The inferior turbinates were then outfractured with a [place] elevator. A left hemitransfixion incision was then made through the mucoperichondrial. Mucoperiosteal flap on the left elevated. Bony cartilaginous junction was disarticulated and mucoperiosteal flap on the right was elevated. Bony nasoseptal deformity were removed with Ketan forceps and an inferior cartilaginous strip was removed, leaving a full 1.5 cm caudal strut. Checking intranasally, this corrected the nasal septal deformities and the hemitransfixion incision was closed with running 4-0 chromic suture. The bilateral Beckman airway splints coated in bacitracin ointment were placed in the nasal cavities and sutured transseptally with 4-0 nylon suture. The patient was then suctioned in an orogastric fashion. The patient was allowed to emerge from general anesthesia, having tolerated the procedure well and was extubated in the operating suite, transferred to postoperative recovery area in satisfactory condition.
[2023-02-01 11:04] VITALS: TEMP 97
[2023-02-01 12:05] VITALS: RESP 16
[2023-02-01] MEDS ORDERED: ACETAMINOPHEN TAB 500 MG TAB PO ONE (12:12)
[2023-02-01] MEDS ORDERED: ACETAMINOPHEN TAB 500 MG TAB ONE (12:14)
[2023-02-01 12:26] VITALS: BP 153/89; PULSE 58
== END 2023-02-01 12:56 | disposition home or self-care (01) ==
LOC: OR 09:23
PROVIDERS: ATTEND Otolaryngology
DX: J34.2 Deviated nasal septum (principal); J34.3 Hypertrophy of nasal turbinates; M19.90 Unspecified osteoarthritis, unspecified site; E03.9 Hypothyroidism, unspecified; K76.0 Fatty (change of) liver, not elsewhere classified; F41.9 Anxiety disorder, unspecified; K21.9 Gastro-esophageal reflux disease without esophagitis; Z88.2 Allergy status to sulfonamides; Z91.013 Allergy to seafood; Z79.890 Hormone replacement therapy; Z79.899 Other long term (current) drug therapy; Z88.8 Allergy status to other drugs, medicaments and biological substances
CPT/HCPCS: 88300; 30520; 30802; J2250; J0330; J1100; J2405; J2001; J3010; J3490; J2704; J0736